=== PATIENT | female | born 1945 | race Caucasian/White ===

== ENCOUNTER 2017-07-24 10:52 | Emergency (ER) | payer MEDICARE, OTHER ==
[~2017-07-24] VITALS: Ht 157.5 cm; Wt 78.0 kg
[~2017-07-24 10:52] MED LIST: BUPR300T PO; CALC1TAB12 PO; CELE200C PO; CENTTAB PO; CLON0.5T PO; CLOP75TA PO; CYCL5TAB PO; ESTR1TAB PO; FEXO15TA PO; GLEE100T PO; KETO0.02 EACH EYE; LOSA100T PO; MAGN250T2 PO; PRAV40TA2 PO; RIVA1DIS T-DERMAL; SYSTSOL EACH EYE; TRAM50TA PO; TRAZ50TA12 PO; VITA100L BUCCAL
[2017-07-24 11:04] VITALS: BP 175/88; PULSE 95; RESP 18; TEMP 98.3; O2SAT 98
[2017-07-24] MEDS ORDERED: CLOTLOT TOPICAL (11:17)
[2017-07-24] MEDS ORDERED: ACYC5OIN4 TOPICAL (11:17)
[2017-07-24] MEDS ORDERED: PROG1GEL VAGINAL (11:17)
[2017-07-24] MEDS ORDERED: VITA200C3 PO (11:17)
[2017-07-24] MEDS ORDERED: MAGN250T11 PO (11:17)
[2017-07-24] MEDS ORDERED: CENTCHW4 CHEW (11:17)
[2017-07-24] MEDS ORDERED: CLIN1CAP6 PO (11:30)
--- NOTE | 2017-07-24 11:39 | PD ---
HPI Chief Complaint: Bite or Sting Time Seen by Provider: 11:14 Travel History International Travel<30 days: No Contact w/Intl Traveler<30days: No Traveled to known affect area: No History of Present Illness HPI 72-year-old female presents to the emergency room for evaluation of itchy red insect bite to her right neck that started 2 days ago. Patient states she was in the car driving with the windows down when she felt a painful sting to her neck. She did not actually see anything bite her. States it has been somewhat itchy since then. She has been taking Benadryl which relieves her symptoms temporarily. She reports increased redness and some pain since onset 2 days ago. She denies objective fevers or vomiting. She has had occasional chills but believes it may be due to nerves. PFSH Past Medical History Hx Anticoagulant Therapy: Yes Arthritis: Yes Asthma: No Autoimmune Disease: Yes (fibromyalgia) Blood Disorders: Yes (LEUKEMIA) Anxiety: No Depression: Yes Heart Rhythm Problems: No Cancer: Yes (CML LEUKEMIA) Cardiovascular Problems: Yes (DC, STENT, HTN, CHOL) High Cholesterol: Yes Chemotherapy: Yes (CHEMO PILL) Chest Pain: Yes Congestive Heart Failure: No COPD: No Cerebrovascular Accident: Yes Coronary Artery Disease: Yes Diabetes: No Diminished Hearing: No Endocrine: No Gastrointestinal Disorders: Yes GERD: Yes Headaches: Yes Hepatitis: No Hiatal Hernia: Yes Hypertension: Yes Immune Disorder: Yes (fibromyalgia) Kidney Stones: No Musculoskeletal: Yes Neurologic: Yes Psychiatric: No Reproductive: No Respiratory: No Immunizations Current: Yes Migraines: No Myocardial Infarction: Yes Radiation Therapy: No Renal Failure: No Seizures: No Sickle Cell Disease: No Sleep Apnea: Yes Thyroid Disease: No Ulcer: No Tetanus Vaccination: Unknown Influenza Vaccination: No PNEUMOCCOCAL Vaccine (Year): 2007 ?: Not Menopausal: Yes : 0 Past Surgical History Abdominal Surgery: Yes (BOWEL RESECTION, GALLBLADDER) AICD: No Appendectomy: Yes Arteriovenous Shunt: No Cardiac Surgery: Yes (STENT) Cholecystectomy: Yes Coronary Stent: Yes (X 1) Ear Surgery: No Endocrine Surgery: No Eye Surgery: No Genitourinary Surgery: No Gynecologic Surgery: Yes (hysterectomy) Hysterectomy: Yes Insulin Pump: No Joint Replacement: No Oral Surgery: Yes (TONSILECTOMY) Pacemaker: No Thoracic Surgery: No Tonsillectomy: Yes Other Surgery: Yes Social History Alcohol Use: Yes (OCCASIONAL) Tobacco Use: No Substance Use: No Allergies-Medications (Allergen,Severity, Reaction): Coded Allergies: codeine (Unverified Allergy, Severe, trouble breathing, 07/24/17) mushroom (Unverified Allergy, Severe, Anaphylaxis, 07/24/17) acetaminophen (Unverified Allergy, Intermediate, ITCHING, 07/24/17) oxycodone (Unverified Allergy, Intermediate, ITCHING, 07/24/17) dexamethasone (Unverified Allergy, Unknown, 07/24/17) indomethacin (Unverified Allergy, Unknown, 07/24/17) Reported Meds & Prescriptions Reported Meds & Active Scripts Active Reported Clotrimazole-Betamethasone Topical (Betamethasone/Clotrimazole) 1-0.05% Lotn 1 Applic TOPICAL BID Acyclovir Topical (Acyclovir) 5% Oint 1 Applic TOPICAL Q3HR Crinone Topical (Progesterone (Vaginal) Topical) 4 % Gel 1 Appl VAGINAL DIRECTED Magnesium Oxide 250 Mg Tab 250 Mg PO BID Centrum (Multiple Vitamins W/ Minerals) 1 Chew 1 Tab CHEW DAILY Vitamin E 200 Unit Cap 400 Units PO DAILY Calcium 500 +D (Calcium Carbonate-Cholecalciferol) 500-400 Mg-Unit Tab 2 Tab PO DAILY Misa Allergy (Fexofenadine HCl) 180 Mg Tab 180 Mg PO DAILY Rivastigmine Patch (Rivastigmine) 4.6 mg/24 hr Patch 1 Patch T-DERMAL DAILY Bupropion HCl ER 24 HR (Bupropion HCl) 300 Mg Tab 300 Mg PO HS Clonazepam 0.5 Mg Tab 0.5 Mg PO DAILY Tramadol (Tramadol HCl) 50 Mg Tab 50 Mg PO Q8H PRN Trazodone (Trazodone HCl) 50 Mg Tab 50 Mg PO HS Pravastatin 40 Mg Tab 40 Mg PO DAILY Losartan (Losartan Potassium) 100 Mg Tab 100 Mg PO DAILY Flexeril (Cyclobenzaprine HCl) 5 Mg Tab 5 Mg PO HS Estradiol 1 Mg Tab 1 Mg PO DAILY Celebrex (Celecoxib) 200 Mg Cap 200 Mg PO DAILY Gleevec (Imatinib Mesylate) 100 Mg Tab 400 Mg PO DAILY Clopidogrel (Clopidogrel Bisulfate) 75 Mg Tab 75 Mg PO DAILY Review of Systems Except as stated in HPI: all other systems reviewed are Neg Physical Exam Narrative GENERAL: Well-nourished, well-developed female in no acute distress. Afebrile. Ambulatory. SKIN: Focused skin assessment warm/dry. There is an indurated area in the right lateral neck which measures about 1.5 cm in diameter. In the center of the lesion and there is a puncture yolie. No fluctuance. There is a zone of inflammation around it measuring 6 x 4 cm but no lymphangitis. HEAD: Normocephalic. EYES: No scleral icterus. No injection or drainage. NECK: Supple, trachea midline. No JVD or lymphadenopathy. Full range of motion. CARDIOVASCULAR: Regular rate and rhythm without murmurs, gallops, or rubs. RESPIRATORY: Breath sounds equal bilaterally. No accessory muscle use. PSYCHIATRIC: No delusional thought processes. No hallucinations. Data Data Last Documented VS Vital Signs Date Time Temp Pulse Resp B/P (MAP) Pulse Ox O2 Delivery O2 Flow Rate FiO2 07/24/17 11:04 98.3 95 18 175/88 (117) 98 MDM Medical Decision Making Medical Screen Exam Complete: Yes Emergency Medical Condition: Yes Medical Record Reviewed: Yes Differential Diagnosis Cellulitis, insect bite, inflammatory response, allergic reaction Narrative Course 72-year-old female presents to the emergency room for evaluation of an itchy, somewhat painful insect bite to her right lateral neck that occurred 2 days ago and appears to be getting worse. She felt the insect bite her but did not actually see it. Patient has been taking Benadryl which temporarily relieve her symptoms. No systemic signs of infection. Vital signs stable. Physical exam reveals a 1.5 cm area of induration with 4 x 6 cm of surrounding erythema. No lymphangitis. It is light red and not significantly warm. No fluctuance or indication for incision and drainage at this time. Differential included inflammatory response/allergic reaction and cellulitis. Patient will be discharged with clindamycin to cover strep and MRSA and told to follow-up with a primary care physician or return for worsening symptoms. The area was outlined and purple marker. She understands and agrees to plan. Diagnosis Primary Impression: Cellulitis Qualified Codes: L03.221 - Cellulitis of neck Additional Impression: Insect bite Qualified Codes: W57.XXXA - Bitten or stung by nonvenomous insect and other nonvenomous arthropods, initial encounter Referrals: Primary Care Physician Additional Instructions: Rest and drink plenty of fluids. Take clindamycin as directed, until gone. Follow up with a primary care physician. Return to emergency room for worsening symptoms, as discussed. Med/Other Pt SpecificInfo: Prescription(s) given Scripts Clindamycin (Clindamycin) 300 Mg Cap 300 MG PO Q6H for Infection for 10 Days, CAP 0 Refills Prov: Bj Beltrán MD 07/24/17 Disposition: 01 DISCHARGE HOME Condition: Stable Sandra Luciano Jul 24, 2017 11:39
== END 2017-07-24 11:57 | disposition home or self-care (01) ==
LOC: PHEFT 10:52
DX: L03.221 Cellulitis of neck (principal); I10 Essential (primary) hypertension; E78.00 Pure hypercholesterolemia, unspecified; G47.30 Sleep apnea, unspecified; I25.2 Old myocardial infarction; W57.XXXA Bitten or stung by nonvenomous insect and other nonvenomous arthropods, initial encounter; Z79.01 Long term (current) use of anticoagulants; Z87.39 Personal history of other diseases of the musculoskeletal system and connective tissue; Z85.6 Personal history of leukemia; Z86.2 Personal history of diseases of the blood and blood-forming organs and certain disorders involving the immune mechanism; Z86.59 Personal history of other mental and behavioral disorders; Z86.79 Personal history of other diseases of the circulatory system; Z87.19 Personal history of other diseases of the digestive system; Z86.69 Personal history of other diseases of the nervous system and sense organs
CPT/HCPCS: 99283